=== PATIENT | female | born 1990 | race African-American/Black ===

== ENCOUNTER 2019-02-08 21:32 | Emergency (ER) | payer OTHER, MEDICAID ==
[~2019-02-08] VITALS: Ht 157.5 cm; Wt 93.0 kg
[2019-02-08] MEDS ORDERED: PRENATAL PO (21:45)
[2019-02-08 22:42] VITALS: BP 119/84
[2019-02-08 23:56] LABS: URINE BILIRUBIN NEGATIVE (Negative); URINE BLOOD TRACE (Negative); URINE CLARITY CLEAR; URINE COLOR YELLOW; URINE GLUCOSE-RANDOM NEGATIVE (Negative); URINE KETONES NEGATIVE (Negative); URINE LEUKOCYTES-REFLEX 2+ (Negative); URINE NITRITE-REFLEX NEGATIVE (Negative); URINE PROTEIN 2+ (Negative)
[2019-02-09 00:02] LABS: CASTS None Seen /LPF (None Seen); SQUAMOUS >10 Many /LPF (0-3)
[2019-02-09 00:04] LABS: URINE RBC 3-10 Few /HPF (0-2); URINE WBC-REFLEX >25 Many /HPF (0-5)
[2019-02-09 00:06] LABS: BACTERIA-REFLEX >30 Many /HPF (None Seen); CRYSTALS None Seen /LPF (None Seen)
== END 2019-02-08 22:42 | disposition short-term general hospital (02) ==
LOC: M.ERS 21:32
PROVIDERS: Emergency Medicine Emergency Medical Services
DX: O36.8130 Decreased fetal movements, third trimester, not applicable or unspecified (principal); O30.003 Twin pregnancy, unspecified number of placenta and unspecified number of amniotic sacs, third trimester; Z3A.36 36 weeks gestation of pregnancy